=== PATIENT | male | born 1950 | race Caucasian/White ===

== ENCOUNTER 2017-09-13 09:23 | Emergency (ER) | END 2017-09-13 19:03 | disposition home or self-care (01) ==

== ENCOUNTER 2019-05-27 09:42 | Emergency (ER) | payer MEDICARE, OTHER ==
[~2019-05-27] VITALS: Wt 71.8 kg
[~2019-05-27 09:42] MED LIST: BEN50 PO; DOCU-144 PO; FER325 PO; FERR134T PO; HYDR-4011 PO; LOSA100T15 PO
[2019-05-27] MEDS ORDERED: SOD CHLORIDE 0.9% 1,000 ML IV STA (10:12)
[2019-05-27 13:03] VITALS: BP 114/82; PULSE 59; RESP 22
== END 2019-05-27 13:06 | disposition home or self-care (01) ==
LOC: E/R 09:42
DX: R42 Dizziness and giddiness (principal); D64.9 Anemia, unspecified
CPT/HCPCS: 36415; 80053; 84484; 85025; 85610; 85730; 86850; 86900; 86901; 93005; 99284; J7030